=== PATIENT | male | born 1960 | race Two or more races ===

== ENCOUNTER 2017-07-09 22:18 | Emergency (ER) | payer OTHER, MEDICARE ==
[~2017-07-09] VITALS: Ht 170.2 cm; Wt 77.1 kg
[2017-07-09 22:39] LABS: BASO # 0.1 x10^3/uL (0.0-0.2); BASO % 1 % (0-3); EOS % 2 % (0-3); HEMOGLOBIN 15.2 g/dL (13.0-17.5); LYMPH # 4.1 x10^3/uL (1.0-4.8); LYMPH % 47 % (24-48); MEAN CORPUSCULAR HEMOGLOBIN 30 pg (25-35); MEAN CORPUSCULAR HGB CONC 34 g/dL (31-37); MEAN CORPUSCULAR VOLUME 87 fL (79-100); MONO % 7 % (0-9); NEUT % 43 % (31-73); PLATELET COUNT 160 x10^3/uL (140-400); RED BLOOD COUNT 5.15 x10^6/uL (4.30-5.70); RED CELL DISTRIBUTION WIDTH 14.5 % (11.5-14.5); WHITE BLOOD COUNT 8.6 x10^3/uL (4.0-11.0)
[2017-07-09 22:55] LABS: ANION GAP 12 (6-14); BLOOD UREA NITROGEN 18 mg/dL (8-26); CALCIUM 8.6 mg/dL (8.5-10.1); CARBON DIOXIDE 27 mmol/L (21-32); CHLORIDE 103 mmol/L (98-107); GFR 77.9; GLUCOSE 130 mg/dL (70-99); POTASSIUM 3.9 mmol/L (3.5-5.1); SODIUM 142 mmol/L (136-145)
[2017-07-09] MEDS ORDERED: IPRATRPIUM/ALBUTEROL 0.5/2.5MG 3 ML NEBU. NEB ONE (23:00)
[2017-07-09 23:01] LABS: ALBUMIN 3.8 g/dL (3.4-5.0); ALK PHOS 108 U/L (46-116); ALT (SGPT) 34 U/L (16-63); AST (SGOT) 30 U/L (15-37); DIRECT BILIRUBIN < 0.1 mg/dL (0.0-0.2); TOTAL BILIRUBIN 0.2 mg/dL (0.2-1.0); TOTAL PROTEIN 6.6 g/dL (6.4-8.2)
--- NOTE | 2017-07-09 23:42 | PHYS DOC ---
Past Medical History Past Medical History: GERD, High Cholesterol Past Surgical History: Other Additional Past Surgical Histo: AORTIC BYPASS Alcohol Use: None Drug Use: None Adult General Chief Complaint Chief Complaint: SHORTNESS OF BREATH HPI HPI 56-year-old male presenting to the emergency department by EMS tonight after waking up gasping for air. He reported feeling short of breath when he woke up with nausea and vomited twice. He reports this happening in the past and having had a sleep study that he reports is normal. Currently he is feeling much better and without any complaints. Onset tonight. Location generalized. Duration intermittent. Timing at night. Review of systems is negative for chest pain. Currently he denies being short of breath. He denies fevers chills cough cyanosis. All other review of systems is negative unless otherwise noted in history of present illness. ED course: 56-year-old male presenting to the emergency department today with an episode of gasping for air with nausea and vomiting while sleeping tonight. Upon arrival the patient is saturating well and feeling much better. EKG obtained and reviewed by myself. Shows sinus rhythm with a regular rate. ST segments congruent. Not consistent with ACS. Chest x-ray obtained and reviewed by myself shows no obvious infiltrate or pneumothorax. No obvious acute cardiopulmonary findings on x-ray. Blood work reviewed shows negative troponin and is otherwise unremarkable. Patient was observed in the emergency department without any changes. Repeat EKG and troponin continued be normal. Patient subsequent discharged home. The patient was then discharged home in stable condition to follow up with their primary care physician over the next 2-3 days. They were to return if their symptoms worsened or if they were concerned for any reason. [id number] discharge instructions and return precautions were given. Patient's questions were answered to their satisfaction. Patient is comfortable plan. Review of Systems Review of Systems SEE ABOVE. Current Medications Current Medications Current Medications Medications (Trade) Dose Ordered Sig/Leticia Start Time Stop Time Status Last Admin Dose Admin Albuterol/ Ipratropium (Duoneb) 3 ml 1X ONCE 07/09/17 23:00 07/09/17 23:01 DC 07/09/17 23:04 3 ML Allergies Allergies Allergies Coded Allergies Type Severity Reaction Last Updated Verified No Known Drug Allergies 07/09/17 No Physical Exam Physical Exam SEE ABOVE Constitutional: Well developed, well nourished, no acute distress, non-toxic appearance. [] HENT: Normocephalic, atraumatic, bilateral external ears normal, oropharynx moist, no oral exudates, nose normal. [] Eyes: PERRLA, EOMI, conjunctiva normal, no discharge. [] Neck: Normal range of motion, no tenderness, supple, no stridor. [] Cardiovascular:Heart rate regular rhythm, no murmur [] Lungs & Thorax: Bilateral breath sounds clear to auscultation []. No wheezing or crackles. Abdomen: Bowel sounds normal, soft, no tenderness, no masses, no pulsatile masses. [] Skin: Warm, dry, no erythema, no rash. [] Back: No tenderness, no CVA tenderness. [] Extremities: No tenderness, no cyanosis, no clubbing, ROM intact, no edema. [] Neurologic: Alert and oriented X 3, normal motor function, normal sensory function, no focal deficits noted. [] Psychologic: Affect normal, judgement normal, mood normal. [] Current Patient Data Vital Signs Vital Signs Date Time Temp Pulse Resp B/P (MAP) Pulse Ox O2 Delivery O2 Flow Rate FiO2 07/09/17 23:04 97 Room Air 07/09/17 22:18 99.5 85 18 108/64 (79) 99.5 Lab Values Laboratory Tests Test 07/09/17 22:30 07/10/17 01:11 White Blood Count 8.6 x10^3/uL (4.0-11.0) Red Blood Count 5.15 x10^6/uL (4.30-5.70) Hemoglobin 15.2 g/dL (13.0-17.5) Hematocrit 45.0 % (39.0-53.0) Mean Corpuscular Volume 87 fL (79-100) Mean Corpuscular Hemoglobin 30 pg (25-35) Mean Corpuscular Hemoglobin Concent 34 g/dL (31-37) Red Cell Distribution Width 14.5 % (11.5-14.5) Platelet Count 160 x10^3/uL (140-400) Neutrophils (%) (Auto) 43 % (31-73) Lymphocytes (%) (Auto) 47 % (24-48) Monocytes (%) (Auto) 7 % (0-9) Eosinophils (%) (Auto) 2 % (0-3) Basophils (%) (Auto) 1 % (0-3) Neutrophils # (Auto) 3.7 x10^3uL (1.8-7.7) Lymphocytes # (Auto) 4.1 x10^3/uL (1.0-4.8) Monocytes # (Auto) 0.6 x10^3/uL (0.0-1.1) Eosinophils # (Auto) 0.2 x10^3/uL (0.0-0.7) Basophils # (Auto) 0.1 x10^3/uL (0.0-0.2) Sodium Level 142 mmol/L (136-145) Potassium Level 3.9 mmol/L (3.5-5.1) Chloride Level 103 mmol/L (98-107) Carbon Dioxide Level 27 mmol/L (21-32) Anion Gap 12 (6-14) Blood Urea Nitrogen 18 mg/dL (8-26) Creatinine 1.0 mg/dL (0.7-1.3) Estimated GFR (Cockcroft-Gault) 77.9 Glucose Level 130 mg/dL (70-99) H Calcium Level 8.6 mg/dL (8.5-10.1) Total Bilirubin 0.2 mg/dL (0.2-1.0) Direct Bilirubin < 0.1 mg/dL (0.0-0.2) Aspartate Amino Transferase (AST) 30 U/L (15-37) Alanine Aminotransferase (ALT) 34 U/L (16-63) Alkaline Phosphatase 108 U/L (46-116) Troponin I Quantitative < 0.017 ng/mL (0.000-0.055) < 0.017 ng/mL (0.000-0.055) MG-Csv-H-Type Natriuretic Peptide 9 pg/mL (0-124) Total Protein 6.6 g/dL (6.4-8.2) Albumin 3.8 g/dL (3.4-5.0) Lipase 226 U/L (73-393) Laboratory Tests 07/09/17 22:30 Laboratory Tests 07/09/17 22:30 EKG EKG [] Radiology/Procedures Radiology/Procedures [] Course & Med Decision Making Course & Med Decision Making Pertinent Labs and Imaging studies reviewed. (See chart for details) [] Dragon Disclaimer Dragon Disclaimer This electronic medical record was generated, in whole or in part, using a voice recognition dictation system. Departure Departure Impression: Primary Impression: Shortness of breath Additional Impression: Nausea and vomiting Disposition: 01 HOME, SELF-CARE Condition: STABLE Referrals: NO PCP (PCP) Patient Instructions: Nausea and Vomiting, Shortness of Breath Additional Instructions: Thank you for allowing us to participate in your care today. Followup with your primary care physician in 3 days if your symptoms do not improve. Call your Primary Doctor tomorrow and inform them of your visit today. If you do not have a primary care provider you can ask for a list of our primary care providers. Return to the emergency department you have any new or concerning findings. This should be evaluated by the primary care physician and any necessary consulting services for continued management within a few days after discharge. Return to emergency room if you have any new or concerning symptoms including but not limited to fever, chills, nausea, vomiting, intractable pain, any new rashes, chest pain, shortness of air, uncontrolled bleeding, difficulty breathing, and/or vision loss. Problem Qualifiers TOMASZ ALFARO MD Jul 09, 2017 23:42
[2017-07-10 01:30] VITALS: BP 91/63
--- NOTE | 2017-07-10 06:27 | EKG ---
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
--- NOTE | 2017-07-10 07:08 | EKG ---
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
--- NOTE | 2017-07-10 08:19 | RAD ---
Portable chest, 07/09/2017: History: Shortness of breath Comparison is made to a study from 11/03/2007. The heart size and pulmonary vascularity are normal. No pulmonary infiltrates are seen. There is no evidence of pleural fluid. IMPRESSION: No acute cardiopulmonary abnormality is detected.
== END 2017-07-10 02:05 | disposition home or self-care (01) ==
LOC: ER 22:18
DX: R06.02 Shortness of breath (principal); R11.2 Nausea with vomiting, unspecified; K21.9 Gastro-esophageal reflux disease without esophagitis; E78.00 Pure hypercholesterolemia, unspecified
CPT/HCPCS: 36415; 71010; 80048; 80076; 83690; 83880; 84484; 85025; 93005; 94250; 94640; 99285; J7620

== ENCOUNTER 2018-09-05 18:05 | Emergency (ER) | payer MEDICARE, OTHER ==
[~2018-09-05] VITALS: Ht 170.2 cm; Wt 79.4 kg
[2018-09-05 18:30] VITALS: BP 120/60
[2018-09-05] MEDS ORDERED: CLIN150C14 PO (18:38)
[2018-09-05] MEDS ORDERED: MUPI15CR TP (18:38)
--- NOTE | 2018-09-05 18:38 | PHYS DOC ---
Past Medical History Past Medical History: CAD, GERD, High Cholesterol Past Surgical History: Other Additional Past Surgical Histo: AORTIC BYPASS Alcohol Use: None Drug Use: None Adult General Chief Complaint Chief Complaint: ABSCESS HPI HPI Patient is a 57 year old male with history of open-heart surgery, who presents today complaining of an abscess on the right lateral calf that he noted 3 days ago. Patient states he thought something bit him, he states the thought it was an ingrown hair and plucked. He states the area has gotten more red and warm. Denies any fever or drainage from the area, he states he is on Aspirin 325mg. He is also a smoker Review of Systems Review of Systems Constitutional: Denies fever or chills [] Musculoskeletal: Denies back pain or joint pain [] Integument: reports abscess of the right lower extremity Neurologic: Denies headache, focal weakness or sensory changes [] All other systems were reviewed and found to be within normal limits, except as documented in this note. Allergies Allergies Allergies Coded Allergies Type Severity Reaction Last Updated Verified No Known Drug Allergies 07/09/17 No Physical Exam Physical Exam Constitutional: Well developed, well nourished, no acute distress, non-toxic appearance. [] Skin: Warm, dry, right lateral calf region with an area of induration approx. 2X2 cm with surround approx. 4X4 cm of cellulitis. There is warmth to the area. No drainage no fluctuance. Center of the area has a puncture wound. Negative Homans sign. Back: No tenderness, no CVA tenderness. [] Extremities: No tenderness, no cyanosis, no clubbing, ROM intact, no edema. [] Neurologic: Alert and oriented X 3, normal motor function, normal sensory function, no focal deficits noted. [] Psychologic: Affect normal, judgement normal, mood normal. [] EKG EKG [] Radiology/Procedures Radiology/Procedures [] Course & Med Decision Making Course & Med Decision Making Pertinent Labs and Imaging studies reviewed. (See chart for details) This is a 57-year-old male patient presented to the ED today with an abscess and cellulitis of the right lower extremity. Tetanus was updated in the ED. He was given Rocephin IM. D/C with Bactroban ointment and Clindamycin. Instructed to apply warm compresses to the area. F/u with PCP next week. Dragon Disclaimer Dragon Disclaimer This electronic medical record was generated, in whole or in part, using a voice recognition dictation system. Departure Departure Impression: Primary Impression: Cellulitis and abscess of right lower extremity Disposition: HOME, SELF-CARE Condition: STABLE Referrals: NO PCP (PCP) Follow-up with your own doctor in 1-2 weeks Patient Instructions: Abscess, Care After, Cellulitis, [id number] Additional Instructions: You were evaluated in the emergency room for an abscess and cellulitis of the right lower extremity. Please keep the area clean and dry. Apply warm compresses to the area 2-3 times a day. Take the prescribed antibiotics until completed. Continue taking your aspirin every day. Follow-up with your own primary care doctor in 1-2 weeks. Scripts Clindamycin Hcl (CLINDAMYCIN HCL) 150 Mg Capsule 3 CAP PO TID, #90 CAP Prov: JAMAL GALVEZ APRN 09/05/18 Mupirocin Calcium (BACTROBAN CREAM) 15 Gm Cream..g. 1 PREET TP TID, #30 GM Prov: JAMAL GALVEZ APRN 09/05/18 JAMAL GALVEZ APRN Sep 05, 2018 18:38
[2018-09-05] MEDS: LIDOCAINE 1% PF 2 ML VIAL. INJ ONE (18:49)
[2018-09-05] MEDS: cefTRIAXone IM 1 GM VIAL IM ONE (18:49)
[2018-09-05] MEDS: DIPHTH,PERTUSS(ACELL),TET TOX 0.5 ML DISP.SYRIN. VAX IM ONE (18:51)
== END 2018-09-05 19:15 | disposition home or self-care (01) ==
LOC: ER 18:05
DX: L03.115 Cellulitis of right lower limb (principal); E78.00 Pure hypercholesterolemia, unspecified; K21.9 Gastro-esophageal reflux disease without esophagitis; I25.10 Atherosclerotic heart disease of native coronary artery without angina pectoris
CPT/HCPCS: 90471; 90715; 96372; 99283; J0696

== ENCOUNTER → 2019-12-15 | Outpatient (CLI) | payer MEDICARE, OTHER ==
[~2019-12-15] MED LIST: CLIN150C14 PO; MUPI15CR TP
--- NOTE | 2019-12-15 13:02 | KCIC ---
PROCEDURE: HAND RIGHT 3V STUDY DATE: Chronic right hand pain. Old fracture. CLINICAL INDICATION / HISTORY: Chronic right hand pain. Old fracture. TECHNIQUE: PA, lateral and oblique views of the right hand. COMPARISON: None available FINDINGS: No acute fracture or dislocation is identified. There is apex dorsal curvature to the fifth metacarpal with mild foreshortening, consistent with an old boxer's fracture. There is very subtle lucency obliquely oriented through the mid shaft of the fifth metacarpal that could represent incomplete healing. The bone density is normal. The joint spaces are maintained, and there are no erosions to suggest an inflammatory arthropathy. The soft tissues are unremarkable. IMPRESSION: Findings suspicious for incompletely healed mid shaft fracture or reinjury of the right fifth metacarpal status post previous boxer's fracture injury. Correlate with the clinical exam. Electronically signed by: Selma Bird MD (12/15/2019 12:59 PM) [id number]
== END | disposition home or self-care (01) ==
LOC: KCIC 10:52
PROVIDERS: ATTEND Family Medicine
DX: M79.641 Pain in right hand (principal); Z87.81 Personal history of (healed) traumatic fracture
CPT/HCPCS: 73130

== ENCOUNTER 2020-01-02 18:35 | Emergency (ER) | payer OTHER, MEDICARE ==
[~2020-01-02] VITALS: Ht 170.2 cm; Wt 80.0 kg
[2020-01-02] MEDS ORDERED: FAMOTIDINE 20 MG/2 ML VIAL IVP ONE (19:00)
[2020-01-02] MEDS ORDERED: IV NORMAL SALINE 1000ML BAG 1,000 ML IV ONE (19:00)
[2020-01-02] MEDS ORDERED: KETOROLAC 15 MG/ML VIAL. IVP ONE (19:00)
[2020-01-02 19:18] LABS: BASO # 0.1 x10^3/uL (0.0-0.2); BASO % 1 % (0-3); EOS # 0.1 x10^3/uL (0.0-0.7); EOS % 2 % (0-3); HEMATOCRIT 48.5 % (39.0-53.0); HEMOGLOBIN 16.3 g/dL (13.0-17.5); LYMPH # 3.1 x10^3/uL (1.0-4.8); LYMPH % 41 % (24-48); MEAN CORPUSCULAR HEMOGLOBIN 30 pg (25-35); MEAN CORPUSCULAR HGB CONC 34 g/dL (31-37); MEAN CORPUSCULAR VOLUME 90 fL (79-100); MONO # 0.5 x10^3/uL (0.0-1.1); MONO % 6 % (0-9); NEUT # 3.9 x10^3/uL (1.8-7.7); NEUT % 51 % (31-73); PLATELET COUNT 146 x10^3/uL (140-400); RED BLOOD COUNT 5.42 x10^6/uL (4.30-5.70); RED CELL DISTRIBUTION WIDTH 14.2 % (11.5-14.5); WHITE BLOOD COUNT 7.6 x10^3/uL (4.0-11.0)
[2020-01-02 19:27] LABS: CALCIUM 8.9 mg/dL (8.5-10.1); POTASSIUM 3.7 mmol/L (3.5-5.1)
--- NOTE | 2020-01-02 19:29 | PHYS DOC ---
Past Medical History Past Medical History: CAD, GERD, High Cholesterol Additional Past Medical Histor: Abdominal Aneurysm Past Surgical History: Other Additional Past Surgical Histo: AORTIC BYPASS Smoking Status: Current Every Day Smoker Alcohol Use: None Drug Use: None Adult General Chief Complaint Chief Complaint: ABDOMINAL PAIN HPI HPI 59-year-old male presents with report of abdominal pain near midline surgical incision. Patient reports he has noticed a bulge there previously which he had been informed was a hernia, however today while working moving a piece of sheet rock he noticed a larger area which was tender to palpation. He currently r eports his symptoms have now subsided, but he was concerned that it might be something more serious. Denies any nausea or vomiting. Denies constipation issue. Denies fever or chills. Denies sick contacts. Denies travel outside denies states. Review of Systems Review of Systems Constitutional: Denies fever or chills Eyes: Denies redness or eye pain HENT: Denies nasal congestion or sore throat Respiratory: Denies cough or shortness of breath Cardiovascular: Denies chest pain or palpitations GI: Reports abdominal pain; denies nausea or vomiting : Denies dysuria or hematuria Musculoskeletal: Denies back pain or joint pain Integument: Denies rash or skin lesions Neurologic: Denies headache, focal weakness or sensory changes Complete systems were reviewed and found to be within normal limits, except as documented in this note. Current Medications Current Medications Current Medications Medications (Trade) Dose Ordered Sig/Leticia Start Time Stop Time Status Last Admin Dose Admin Famotidine (Pepcid Vial) 20 mg 1X ONCE 01/02/20 19:00 01/02/20 19:01 DC 01/02/20 19:17 20 MG Info (CONTRAST GIVEN -- Rx MONITORING) 1 each PRN DAILY PRN 01/02/20 19:45 01/02/20 21:06 DC Iohexol (Omnipaque 300 Mg/ml) 75 ml 1X ONCE 01/02/20 19:45 01/02/20 19:46 DC 01/02/20 20:05 75 ML Ketorolac Tromethamine (Toradol 15mg Vial) 15 mg 1X ONCE 01/02/20 19:00 01/02/20 19:01 DC 01/02/20 19:17 15 MG Sodium Chloride 1,000 ml @ 1,000 mls/hr 1X ONCE 4/6/20 19:00 01/02/20 19:59 DC 01/02/20 19:18 1,000 MLS/HR Allergies Allergies Allergies Coded Allergies Type Severity Reaction Last Updated Verified No Known Drug Allergies 07/09/17 No Physical Exam Physical Exam Constitutional: Well developed, well nourished, no acute distress, non-toxic appearance HENT: Normocephalic, atraumatic Eyes: Conjunctiva normal, no discharge Neck: Normal range of motion, no tenderness, supple Lungs & Thorax: No respiratory distress, equal chest wall rise and fall Abdomen: Soft, no tenderness, midline vertical healed incision, no palpable mass Skin: Warm, dry, no erythema, no rash Extremities: No tenderness, ROM intact, no edema Neurologic: Alert and oriented X 3, normal motor function, normal sensory function, no focal deficits noted Psychologic: Affect normal, judgment normal Current Patient Data Vital Signs Vital Signs Date Time Temp Pulse Resp B/P (MAP) Pulse Ox O2 Delivery O2 Flow Rate FiO2 01/02/20 20:40 76 21 135/70 (91) 97 Room Air 01/02/20 18:39 98.6 98.6 Lab Values Laboratory Tests Test 01/02/20 19:00 01/02/20 20:15 White Blood Count 7.6 x10^3/uL (4.0-11.0) Red Blood Count 5.42 x10^6/uL (4.30-5.70) Hemoglobin 16.3 g/dL (13.0-17.5) Hematocrit 48.5 % (39.0-53.0) Mean Corpuscular Volume 90 fL (79-100) Mean Corpuscular Hemoglobin 30 pg (25-35) Mean Corpuscular Hemoglobin Concent 34 g/dL (31-37) Red Cell Distribution Width 14.2 % (11.5-14.5) Platelet Count 146 x10^3/uL (140-400) Neutrophils (%) (Auto) 51 % (31-73) Lymphocytes (%) (Auto) 41 % (24-48) Monocytes (%) (Auto) 6 % (0-9) Eosinophils (%) (Auto) 2 % (0-3) Basophils (%) (Auto) 1 % (0-3) Neutrophils # (Auto) 3.9 x10^3/uL (1.8-7.7) Lymphocytes # (Auto) 3.1 x10^3/uL (1.0-4.8) Monocytes # (Auto) 0.5 x10^3/uL (0.0-1.1) Eosinophils # (Auto) 0.1 x10^3/uL (0.0-0.7) Basophils # (Auto) 0.1 x10^3/uL (0.0-0.2) Prothrombin Time 13.0 SEC (11.7-14.0) Prothrombin Time INR 1.0 (0.8-1.1) Activated Partial Thromboplast Time 27 SEC (24-38) Sodium Level 141 mmol/L (136-145) Potassium Level 3.7 mmol/L (3.5-5.1) Chloride Level 104 mmol/L (98-107) Carbon Dioxide Level 28 mmol/L (21-32) Anion Gap 9 (6-14) Blood Urea Nitrogen 10 mg/dL (8-26) Creatinine 1.0 mg/dL (0.7-1.3) Estimated GFR (Cockcroft-Gault) 77.0 BUN/Creatinine Ratio 10 (6-20) Glucose Level 92 mg/dL (70-99) Calcium Level 8.9 mg/dL (8.5-10.1) Total Bilirubin 0.6 mg/dL (0.2-1.0) Aspartate Amino Transferase (AST) 34 U/L (15-37) Alanine Aminotransferase (ALT) 44 U/L (16-63) Alkaline Phosphatase 86 U/L (46-116) Creatine Kinase 449 U/L (39-308) H Creatine Kinase MB (Mass) 3.9 ng/mL (0.0-3.6) H Creatine Kinase MB Relative Index 0.9 % (0-4) Troponin I Quantitative < 0.017 ng/mL (0.000-0.055) Total Protein 6.9 g/dL (6.4-8.2) Albumin 4.1 g/dL (3.4-5.0) Albumin/Globulin Ratio 1.5 (1.0-1.7) Lipase 92 U/L (73-393) Urine Collection Type Unknown Urine Color Yellow Urine Clarity Clear Urine pH 7.0 (<5.0-8.0) Urine Specific [place] 1.020 (1.000-1.030) Urine Protein Negative mg/dL (NEG-TRACE) Urine Glucose (UA) Negative mg/dL (NEG) Urine Ketones (Stick) Negative mg/dL (NEG) Urine Blood Negative (NEG) Urine Nitrite Negative (NEG) Urine Bilirubin Negative (NEG) Urine Urobilinogen Dipstick 0.2 mg/dL (0.2 mg/dL) Urine Leukocyte Esterase Negative (NEG) Urine RBC 0 /HPF (0-2) Urine WBC Occ /HPF (0-4) Urine Squamous Epithelial Cells Occ /LPF Urine Bacteria Few /HPF (0-FEW) Laboratory Tests 01/02/20 19:00 Laboratory Tests 01/02/20 19:00 EKG EKG @1918 NSR at 90bpm, NO ST elevation, RBBB, t wave inversion I and aVL, QRS 110ms, QT/QTc 346/427ms Radiology/Procedures Radiology/Procedures PROCEDURE: CT ABD PELV W/ IV CONTRST ONLY PQRS Compliance Statement: One or more of the following individualized dose reduction techniques were utilized for this examination: 1. Automated exposure control 2. Adjustment of the mA and/or kV according to patient size 3. Use of iterative reconstruction technique CT abdomen/pelvis with contrast 01/02/2020 6:56 PM INDICATION: Abdominal pain COMPARISON: None available TECHNIQUE: Multiple axial CT images of the abdomen and pelvis were obtained after the intravenous administration of 75 mL Omnipaque 300. Coronal and sagittal reformats are provided. FINDINGS: Lung bases are clear. Heart size within normal limits. Calcification within the liver may represent sequela prior granulomatous exposure. Liver, spleen, bilateral adrenal glands, pancreas and gallbladder are normal in appearance. Aortobiiliac bypass is suspected with occlusion of the [place] distal aorta and common iliac arteries. No pathologically enlarged lymph nodes are identified in abdomen and pelvis. There is no free fluid or free intraperitoneal air. The kidneys enhance symmetrically. There is no suspicious renal mass. There is no hydronephrosis. There are no suspected calculi within the kidneys, ureters or urinary bladder. Small and large bowel are normal in caliber. There is no evidence for bowel obstruction. There are no pericolonic inflammatory changes. A normal, nondilated appendix is visualized without adjacent inflammatory changes. Small hiatal hernia. Mild distention of the stomach with debris. Multiple ventral abdominal hernias predominantly containing fat are identified. The largest is a supraumbilical ventral hernia measuring 1.4 cm along the midline containing fat with minimal inflammation. The kidneys enhance symmetrically. There is no suspicious renal mass. There is no hydronephrosis. There are no suspected calculi within the kidneys, ureters or urinary bladder. Urinary bladder is within normal limits in degree of distention. There are changes of benign prostatic hyperplasia. Small fat-containing bilateral inguinal hernias, left greater than right. No suspicious osseous normality is identified. IMPRESSION: No evidence for bowel obstruction or inflammation. Multiple midline ventral abdominal hernias identified containing fat one of which has mild inflammation measuring 1.4 cm. Correlate with physical findings. Aortoiliac occlusive disease status post bypass grafting which is widely patent. Electronically signed by: Megan Dooley MD (01/02/2020 8:19 PM) [facility] Course & Med Decision Making Course & Med Decision Making Pertinent Labs and Imaging studies reviewed. (See chart for details) Patient presents with history of present illness and physical exam concerning for abdominal wall hernia. Patient with history of prior bypass surgery. No hernia operated on exam. Appears it has already been reduced. Labs obtained and posted to chart. EKG stable. CT abdomen/pelvis with findings of fat containing ventral/incisional hernias. Patient stable for discharge with outpatient follow-up with PCP/surgery. General surgeon referral provided. Discussed findings and plan with patient, who acknowledges understanding and agreement. Dragon Disclaimer Dragon Disclaimer This electronic medical record was generated, in whole or in part, using a voice recognition dictation system. Departure Departure Impression: Primary Impression: Abdominal pain Additional Impression: Abdominal wall hernia Disposition: HOME, SELF-CARE Condition: STABLE Referrals: SUZETTE MYLES MD (PCP) PASCUAL AVENDAÑO MD Patient Instructions: Abdominal Pain (Nonspecific), Hernia, [id number] Additional Instructions: Use over the counter Tylenol and Ibuprofen for pain or discomfort. Problem Qualifiers Primary Impression: Abdominal pain Abdominal location: unspecified location Qualified Codes: R10.9 - Unspecified abdominal pain EMMANUELBRANDIE DO Jan 02, 2020 19:29
[2020-01-02 19:33] LABS: ALBUMIN 4.1 g/dL (3.4-5.0); ALBUMIN/GLOBULIN RATIO 1.5 (1.0-1.7); TOTAL BILIRUBIN 0.6 mg/dL (0.2-1.0); TOTAL PROTEIN 6.9 g/dL (6.4-8.2)
[2020-01-02] MEDS ORDERED: CONTRAST GIVEN. MC PRN (19:45)
[2020-01-02] MEDS ORDERED: IOHEXOL 300 MG/ML 100ML VIAL. IV ONE (19:45)
[2020-01-02 20:22] LABS: BILIRUBIN,URINE NEGATIVE (NEG); CLARITY,URINE CLEAR; COLOR,URINE YELLOW; NITRITE,URINE NEGATIVE (NEG); PROTEIN,URINE NEGATIVE (NEG-TRACE); UROBILINOGEN,URINE 0.2 mg/dL (0.2 mg/dL)
--- NOTE | 2020-01-02 20:22 | RAD ---
PQRS Compliance Statement: One or more of the following individualized dose reduction techniques were utilized for this examination: 1. Automated exposure control 2. Adjustment of the mA and/or kV according to patient size 3. Use of iterative reconstruction technique CT abdomen/pelvis with contrast 01/02/2020 6:56 PM INDICATION: Abdominal pain COMPARISON: None available TECHNIQUE: Multiple axial CT images of the abdomen and pelvis were obtained after the intravenous administration of 75 mL Omnipaque 300. Coronal and sagittal reformats are provided. FINDINGS: Lung bases are clear. Heart size within normal limits. Calcification within the liver may represent sequela prior granulomatous exposure. Liver, spleen, bilateral adrenal glands, pancreas and gallbladder are normal in appearance. Aortobiiliac bypass is suspected with occlusion of the [place] distal aorta and common iliac arteries. No pathologically enlarged lymph nodes are identified in abdomen and pelvis. There is no free fluid or free intraperitoneal air. The kidneys enhance symmetrically. There is no suspicious renal mass. There is no hydronephrosis. There are no suspected calculi within the kidneys, ureters or urinary bladder. Small and large bowel are normal in caliber. There is no evidence for bowel obstruction. There are no pericolonic inflammatory changes. A normal, nondilated appendix is visualized without adjacent inflammatory changes. Small hiatal hernia. Mild distention of the stomach with debris. Multiple ventral abdominal hernias predominantly containing fat are identified. The largest is a supraumbilical ventral hernia measuring 1.4 cm along the midline containing fat with minimal inflammation. The kidneys enhance symmetrically. There is no suspicious renal mass. There is no hydronephrosis. There are no suspected calculi within the kidneys, ureters or urinary bladder. Urinary bladder is within normal limits in degree of distention. There are changes of benign prostatic hyperplasia. Small fat-containing bilateral inguinal hernias, left greater than right. No suspicious osseous normality is identified. IMPRESSION: No evidence for bowel obstruction or inflammation. Multiple midline ventral abdominal hernias identified containing fat one of which has mild inflammation measuring 1.4 cm. Correlate with physical findings. Aortoiliac occlusive disease status post bypass grafting which is widely patent. Electronically signed by: Megan Dooley MD (01/02/2020 8:19 PM) [facility]
[2020-01-02 20:30] LABS: BACTERIA,URINE FEW /HPF (0-FEW); RBC,URINE 0 /HPF (0-2); WBC,URINE OCC /HPF (0-4)
[2020-01-02 20:31] LABS: SQUAMOUS EPITHELIAL CELL,UR OCC /LPF
[2020-01-02 20:40] VITALS: BP 135/70
--- NOTE | 2020-01-03 03:23 | EKG ---
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 Electronically Signed On 01-03-2020 9:38:34 CDT by Gerald Rosen
== END 2020-01-02 21:03 | disposition home or self-care (01) ==
LOC: ER 18:35
DX: K43.9 Ventral hernia without obstruction or gangrene (principal); K21.9 Gastro-esophageal reflux disease without esophagitis; E78.00 Pure hypercholesterolemia, unspecified; I25.10 Atherosclerotic heart disease of native coronary artery without angina pectoris; F17.200 Nicotine dependence, unspecified, uncomplicated
CPT/HCPCS: 36415; 74177; 80053; 81001; 82553; 83690; 84484; 85025; 85610; 85730; 93005; 96374; 96375; 99285; J1885; J3490; J7030; Q9967